=== PATIENT | male | born 1950 | race Caucasian/White ===

== ENCOUNTER → 2019-08-20 | Outpatient (CLI) | payer BC, MEDICARE, OTHER | END | disposition home or self-care (01) | LOC: CFH 08:07 | PROVIDERS: ATTEND Nurse Practitioner Family | DX: J47.9 Bronchiectasis, uncomplicated (principal); J98.11 Atelectasis; K21.9 Gastro-esophageal reflux disease without esophagitis; R06.09 Other forms of dyspnea; R90.89 Other abnormal findings on diagnostic imaging of central nervous system; J98.4 Other disorders of lung; K76.0 Fatty (change of) liver, not elsewhere classified; N28.1 Cyst of kidney, acquired; N20.0 Calculus of kidney | CPT/HCPCS: 71250 ==